=== PATIENT | male | born 1995 | race Caucasian/White ===

== ENCOUNTER 2018-09-12 16:34 | Emergency (ER) | payer OTHER ==
[~2018-09-12] VITALS: Ht 177.8 cm; Wt 95.2 kg
[2018-09-12 16:36] VITALS: BP 147/81
[2018-09-12] MEDS ORDERED: IBUP-1022 PO (17:18)
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
== END 2018-09-12 17:27 | disposition home or self-care (01) ==
LOC: M ED 16:34
DX: S40.012A Contusion of left shoulder, initial encounter (principal); V28.4XXA Motorcycle driver injured in noncollision transport accident in traffic accident, initial encounter; Y92.9 Unspecified place or not applicable; Y93.9 Activity, unspecified; Y99.9 Unspecified external cause status